=== PATIENT | female | born 1950 | race Caucasian/White ===

== ENCOUNTER 2019-04-18 18:21 | Emergency (ER) | payer OTHER, MEDICARE, SELFPAY ==
--- NOTE | ~2019-04-18 | XR_ITS ---
EXAMINATION: XR lumbar spine min 4V DATE: 04/18/2019 20:34 INDICATION: Low back pain TECHNIQUE: Anteroposterior, lateral, and bilateral oblique views of the lumbar spine, and cone-down l ateral view of the lumbosacral junction were obtained. COMPARISON: None. FINDINGS: There is levocurvature of the lumbar spine. There are 2 mm of retrolisthesis of L1 on L2. V ertebral body alignment is otherwise maintained. The vertebral body heights are normal. There is grayson re loss of intervertebral disc space height throughout the lumbar spine. There is moderate to severe multilevel facet osteoarthritis. Calcified atherosclerosis is noted. IMPRESSION: 1. Severe lumbar spondylosis without acute findings. Reviewed, dictated and finalized at location A. ER'S LICENSE EXAMINER
--- NOTE | ~2019-04-18 | XR_ITS ---
EXAMINATION:XR cervical spine 4-5V DATE: 04/18/2019 INDICATION: Neck pain TECHNIQUE: AP, lateral, bilateral oblique, lateral swimmers and odontoid views of the cervical spine are provided. COMPARISON: 04/21/12 FINDINGS: There are 2 mm of retrolisthesis of C5 on C6. There is no fracture. There is advanced loss of intervertebral disc space height at C4-5 and C6-7. The vertebral body heights are normal. The odon toid is intact. Small degenerative osteophytes project from the anterior endplates of multiple verteb ral bodies. There is neural foraminal stenosis on the left at C5-6. There is severe multilevel uncove rtebral joint osteoarthritis. Prevertebral soft tissues are normal. IMPRESSION: 1. Moderate to severe cervical spondylosis without acute findings or significant interval change. Reviewed, dictated and finalized at location A. ITIONING MACHINE OPERATOR IMPRESSION: 1. Moderate to severe cervical spondylosis without acute findings or significan t interval change.
[2019-04-18 18:58] VITALS: BP 122/73; PULSE 82; RESP 16; TEMP 37.3; O2SAT 98
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
== END 2019-04-18 21:10 | disposition home or self-care (01) ==
PROVIDERS: Emergency Provider Nurse Practitioner Family; PCP Internal Medicine Infectious Disease
DX: S13.9XXA Sprain of joints and ligaments of unspecified parts of neck, initial encounter (principal); V89.2XXA Person injured in unspecified motor-vehicle accident, traffic, initial encounter; S33.5XXA Sprain of ligaments of lumbar spine, initial encounter; E11.9 Type 2 diabetes mellitus without complications; K21.9 Gastro-esophageal reflux disease without esophagitis; I10 Essential (primary) hypertension
CPT/HCPCS: 72050; 72110; 99213; G0463

== ENCOUNTER 2019-07-16 13:32 | Emergency (ER) | payer MEDICARE, SELFPAY ==
--- NOTE | ~2019-07-16 | XR_ITS ---
EXAMINATION: XR foot LT min 3V DATE: 07/16/2019 13:58 INDICATION: Left foot injury and pain. TECHNIQUE: 4 views of left foot were obtained. COMPARISON: None. FINDINGS: Bone alignment is normal. No acute fracture. There is mild osteoarthritis of many of the mi dfoot and interphalangeal joints. There is an enthesophyte at plantar aspect of calcaneal tuberosity. IMPRESSION: 1. Mild polyarticular osteoarthritis. Reviewed, dictated and finalized at location E.
[2019-07-16 13:38] VITALS: BP 152/80; PULSE 78; RESP 14; TEMP 37.2; O2SAT 99
--- NOTE | 2019-07-16 14:29 | ED.LOWEXIN ---
HPI - Extremity Injury (Lower) General Chief Complaint: Extremity Injury, Lower Stated Complaint: left foot injury Time Seen by Provider: 07/16/19 14:00 Source: patient and RN notes reviewed Mode of arrival: ambulatory Limitations: no limitations History of Present Illness HPI Narrative: 69-year-old female presents with left foot swelling, pain. Reports she was recently diagnosed with a bone spur and received a cortisone injection on Friday. Reports she has been having baseline pain related to the bone spur. Reports that pain caused her to limp. Reports the cortisone injection did not seem to help. Reports yesterday she twisted her foot while getting out of her car causing increased pain, swelling, pain with weightbearing. She has been using crutches since last night. MD complaint: foot injury Related Data Home Medications Medication Instructions Recorded Confirmed dexlansoprazole [Dexilant] 60 mg PO BID 04/18/19 07/16/19 hydrocodone-acetaminophen 1 tab/kg PO PRN 04/18/19 07/16/19 atorvastatin 20 mg PO DAILY 07/16/19 07/16/19 glimepiride 4 mg PO BID 07/16/19 07/16/19 hydrochlorothiazide 25 mg PO DAILY 07/16/19 07/16/19 lisinopril 20 mg PO BID 07/16/19 07/16/19 metformin 850 mg PO BID 07/16/19 07/16/19 tizanidine 4 mg PO HS 07/16/19 07/16/19 valacyclovir 500 mg PO DAILY 07/16/19 07/16/19 Allergies Allergy/AdvReac Type Severity Reaction Status Date / Time No Known Allergies Allergy Verified 07/16/19 13:57 Review of Systems Review of Systems: Narrative: CONSTITUTIONAL: Denies malaise, chills, sweats, or fever. CARDIOVASCULAR: Denies chest pain, palpitations RESPIRATORY: Denies dyspnea. SKIN: Denies bruising, redness MUSCULOSKELETAL: Reports left foot pain, swelling NEUROLOGIC: Denies numbness, weakness All systems reviewed & are unremarkable except as noted in HPI and below PMFSH Past Medical History Medical History (Updated 07/16/19 @ 14:30 by Heidy Montano NP) Back pain Diabetes Diverticulitis Dyslipidemia History of gastroesophageal reflux (GERD) Hypertension Surgical History Surgical History (Updated 04/21/19 @ 08:15 by LOGAN Mcallister) History of cholecystectomy History of hernia surgery History of tonsillectomy Social History Social History (Updated 04/18/19 @ 20:36 by LOGAN Mcallister) Smoking status: Never smoker Second hand tobacco smoke exposure: No Substance use: never Gender identity (if verbalized by the patient): Female Comments At time of signature, agree with nursing past medical, surgical, social and family history. There is no relevant family history pertinent to the presenting complaint Exam Narrative: Exam Narrative: GENERAL: Well-appearing, well-nourished, and in no acute distress. HEAD: Normocephalic, atraumatic. EYES: PERRLA, conjunctivae clear NECK: Supple. CHEST: Speaks in full sentences. No respiratory distress. HEART: Regular rate and rhythm. Normal and equal peripheral pulses. EXTREMITIES: Left foot, digits has normal strength and sensation, normal range of motion. 5/5 strength with digit and ankle flexion and extension. Normal sensation with sensitivity to light touch and pain. Dorsal, lateral, medial edema noted. No open wounds, no skin tenting, no devitalized tissue or atrophy, no trophic changes, no ecchymosis, no obvious deformity, alignment normal, no point tenderness, nearby joints and structures intact. Distal pulses palpable and equal bilaterally, skin warm, dry, pink. Capillary refill less than 3 seconds. SKIN: Warm, dry, no rash. NEURO: Alert and oriented x3. PSYCH: Normal mood and affect Course Course Emergency Course: Patient is aware of diagnosis, understands and agrees to treatment plan. Anticipatory guidance given. Patient agrees to follow-up as directed and is aware of reasons to seek care at the emergency department. Portions of this record may have been created with voice recognition software Vital Signs Vital signs:
== END 2019-07-16 14:38 | disposition home or self-care (01) ==
PROVIDERS: Emergency Provider Nurse Practitioner; PCP Internal Medicine Infectious Disease
DX: S93.602A Unspecified sprain of left foot, initial encounter (principal); E11.9 Type 2 diabetes mellitus without complications; E78.5 Hyperlipidemia, unspecified; I10 Essential (primary) hypertension; K21.9 Gastro-esophageal reflux disease without esophagitis; Z79.84 Long term (current) use of oral hypoglycemic drugs; X50.9XXA Other and unspecified overexertion or strenuous movements or postures, initial encounter; M19.072 Primary osteoarthritis, left ankle and foot
CPT/HCPCS: 73630; 99213; G0463

== ENCOUNTER 2023-07-20 17:28 | Emergency (ER) | payer MEDICARE, SELFPAY ==
[2023-07-20 17:34] VITALS: BP 175/89; BP 180/89; PULSE 87; RESP 20; TEMP 37.3; O2SAT 98
--- NOTE | 2023-07-20 17:46 | ED.GENADULT ---
HPI - General Adult General Chief complaint: Unspecified Stated complaint: Throat Problem Time Seen by Provider: 07/20/23 17:46 Source: patient, RN notes reviewed and old records reviewed Mode of arrival: ambulatory Limitations: no limitations History of Present Illness HPI narrative: 73 year old female accompanied by sister presents to express care with complaints of having irritation and discomfort to her throat when she swallows. Patient reports that she swallowed 3 large pills this morning and it feels like it got stuck. Patient reports that she has stuck her fingers in her throat to see if anything lodged, patient denies scratching her throat when she did that was 'careful'.Patient reports that she is eating and drinking well without difficulty discomfort when swallowing no airway difficulty. Patient has even and nonlabored respirations with no tachypnea SAO2 98% on room air. Unable to view any obstruction in throat, tonsils not present. MD complaint: feel like pill stuck in right side of throat, hurts to swallow. Onset (ago): hour(s) (this morning) Severity: mild Pain Consistency: intermittent (when swallows) Treatments prior to arrival: none Related Data Home Medications Medication Instructions Recorded Confirmed hydrocodone 7.5 mg-acetaminophen 1 tab/kg PO Q4H PRN pain 04/18/19 07/20/23 325 mg tablet atorvastatin 20 mg tablet 20 mg PO DAILY 07/16/19 07/20/23 lisinopril 20 mg tablet 20 mg PO BID 07/16/19 07/20/23 tizanidine 4 mg capsule 4 mg PO TID PRN Spasms 07/16/19 07/20/23 celecoxib 200 mg capsule 200 mg PO DAILY 07/20/23 07/20/23 metformin 1,000 mg tablet 1,000 mg PO BID 07/20/23 07/20/23 Allergies Allergy/AdvReac Type Severity Reaction Status Date / Time No Known Allergies Allergy Verified 07/20/23 17:35 Review of Systems Review of Systems: CONSTITUTIONAL: Denies malaise, chills, sweats, or fever. EYES: Denies visual changes, redness, or discharge. ENT: Reports rhinorrhea, congestion, sinus pain,no otalgia and positive for sore throat, reports that feels like pill stuck in right side of throat. CARDIOVASCULAR: Denies chest pain, palpitations, or edema. RESPIRATORY: Reports no cough.? Denies dyspnea. GASTROINTESTINAL: Denies abdominal pain, nausea, vomiting, diarrhea SKIN: Denies rash or itching. MUSCULOSKELETAL: Denies myalgia. NEUROLOGIC: Denies headache. All systems reviewed & are unremarkable except as noted in HPI and below PMFSH Past Medical History Medical History Back pain Diabetes Diverticulitis Dyslipidemia History of gastroesophageal reflux (GERD) Hypertension Surgical History Surgical History History of cholecystectomy History of hernia surgery History of tonsillectomy Family History Family History Mother Hypertension Family history of diabetes mellitus in first degree relative Acute myocardial infarction Sibling Acute myocardial infarction Social History Social History Smoking status: Never smoker Second hand tobacco smoke exposure: No Substance use: never Living arrangements: with family Occupation/Education: retired Gender identity (if verbalized by the patient): Female Comments At time of signature, agree with nursing past medical, surgical, social and family history. There is no relevant family history pertinent to the presenting complaint Exam Narrative: GENERAL: Well-appearing, well-nourished, and in no acute distress. HEAD: Normocephalic EYES: PERRLA, conjunctivae clear ENT: Nares clear, turbinates edematous and erythematous, clear discharge. Mucous membranes moist. TM pearly bragg with dull light reflex bilaterally; no tragal tenderness. Oropharynx erythematous without lesions. Tonsils not present and t
== END 2023-07-20 18:13 | disposition home or self-care (01) ==
PROVIDERS: Emergency Provider Registered Nurse; PCP Internal Medicine Infectious Disease
DX: R13.10 Dysphagia, unspecified (principal); E11.9 Type 2 diabetes mellitus without complications; E78.5 Hyperlipidemia, unspecified; K21.9 Gastro-esophageal reflux disease without esophagitis; I10 Essential (primary) hypertension
CPT/HCPCS: 99213; G0463